=== PATIENT | male | born 1965 | race Caucasian/White ===

== ENCOUNTER 2024-12-06 09:50 | Day surgery (SDC) | payer OTHER ==
[~2024-12-06] VITALS: Ht 177.8 cm; Wt 81.9 kg
[~2024-12-06 09:50] MED LIST: Depo-Testos200 MG/ML IM; FISH1000 PO; Multiple Vitam1 EAC1 PO
[2024-12-06] MEDS ORDERED: EZETIMIBE10 M6 (09:55)
[2024-12-06] MEDS ORDERED: DEPO-TESTO200 MG/18 (09:56)
[2024-12-06] MEDS ORDERED: SILD25T (09:57)
[2024-12-06] MEDS ORDERED: Acerola C500 MG (09:57)
[2024-12-06 11:12] VITALS: BP 125/90
== END 2024-12-06 11:37 | disposition home or self-care (01) ==
LOC: ORSCSDS 09:50
PROVIDERS: Specialist
PROC: 0DBK8ZX Excision of Ascending Colon, Via Natural or Artificial Opening Endoscopic, Diagnostic (ICD-10-PCS; principal; 2024-12-06 10:30)
DX: Z12.11 Encounter for screening for malignant neoplasm of colon (principal); D12.2 Benign neoplasm of ascending colon; K64.8 Other hemorrhoids; K64.4 Residual hemorrhoidal skin tags; K57.30 Diverticulosis of large intestine without perforation or abscess without bleeding; E78.5 Hyperlipidemia, unspecified; Z79.899 Other long term (current) drug therapy
CPT/HCPCS: 88305; J2704; J7120